=== PATIENT | male | born 1965 | race American Indian/Alaskan Native ===

== ENCOUNTER 2016-06-25 01:17 | Emergency (ER) | payer MEDICAID ==
[2016-06-25 02:26] LABS: Hemoglobin 11.9 gm/dl (11.8-15.2); Mean Corpuscular HGB Conc 32 % (32-34); Mean Corpuscular Volume 71 fl (84-94); Platelet Count 211 K/mm3 (140-440); Red Blood Count 5.21 M/mm3 (3.65-5.03); Red Cell Distribution Width 17.4 % (13.2-15.2); White Blood Count 5.7 K/mm3 (4.5-11.0)
[2016-06-25 02:30] LABS: Urine Drugs of Abuse Note Disclamer
[2016-06-25 02:30] LABS: Mean Corpuscular Hemoglobin 23 pg (28-32)
[2016-06-25 02:39] LABS: Anion Gap 20 mmol/L; Blood Urea Nitrogen 12 mg/dL (9-20); Calcium 8.7 mg/dL (8.4-10.2); Carbon Dioxide 22 mmol/L (22-30); Glucose 168 mg/dL (75-100); Potassium 3.8 mmol/L (3.6-5.0); Sodium 142 mmol/L (137-145)
[2016-06-25 02:41] LABS: Bacteria,Urine 1+ /HPF (Negative); Bilirubin,Urine NEG (Negative); Blood,Urine NEG (Negative); Ketones,Urine NEG (Negative); Leukocyte Esterase,Urine NEG (Negative); Nitrite,Urine NEG (Negative); Protein,Urine <15 mg/dL mg/dL (Negative); Urobilinogen,Urine < 2.0 mg/dL (<2.0); WBC,Urine < 1.0 /HPF (0.0-6.0)
[2016-06-25 03:15] LABS: Basophils % (Manual) 0 % (0.0-1.8); Blastocytes % (Manual) 0 %; Hypochromasia 1+
[2016-06-25 03:16] LABS: Diff Status Complete
[2016-06-25] MEDS ORDERED: ATIVAN IM PRN (03:24)
--- NOTE | 2016-06-25 03:25 | Emergency Department Report ---
ED General Adult HPI - General Chief complaint: Psych Stated complaint: SICK Time Seen by Provider: 06/25/16 03:10 Source: patient Mode of arrival: Ambulatory Limitations: No Limitations - History of Present Illness Initial comments: this is a 51 y/o male he is previously unknown to me he presents to the Er complaining of wanting to end it all and be with his who is The patient indicates that he has consumed alcohol and he has tried to overdose on a legal drugs. He is not hearing voices. There is no trauma. There is no chest pain. There is no shortness of breath. The patient will not answer whether or not he has access to guns or firearms. -: Gradual Consistency: constant Improves with: none Worsens with: none Associated Symptoms: malaise, weakness. denies: chest pain, cough, diaphoresis , fever/chills, headaches, loss of appetite - Related Data Allergies Allergy/AdvReac Type Severity Reaction Status Date / Time haloperidol [From Haldol] Allergy Unknown Verified 06/25/16 01:33 haloperidol lactate Allergy Unknown Verified 06/25/16 01:33 [From Haldol] ED Review of Systems ROS: Stated complaint: SICK Other details as noted in HPI Constitutional: denies: fever Eyes: denies: vision change ENT: denies: epistaxis Respiratory: denies: cough Cardiovascular: denies: chest pain Gastrointestinal: denies: abdominal pain Genitourinary: denies: dysuria Musculoskeletal: denies: back pain Skin: denies: lesions Neurological: weakness Psychiatric: as per HPI, suicidal thoughts ED Past Medical Hx - Past Medical History Hx Hypertension: Yes Hx Diabetes: Yes - Surgical History Past Surgical History?: Yes Additional Surgical History: will not elaborate - Social History Smoking Status: Current Every Day Smoker Substance Use Type: Alcohol, Other ED Physical Exam - General Limitations: No Limitations, Other (patient has alcohol on breath, he is intoxicated) General appearance: alert, in no apparent distress - Head Head exam: Present: atraumatic, normocephalic - Eye Eye exam: Present: normal appearance, EOMI. Absent: nystagmus - ENT ENT exam: Present: normal exam, normal orophraynx, mucous membranes moist, normal external ear exam - Neck Neck exam: Present: normal inspection, full ROM. Absent: tenderness, meningismus - Respiratory Respiratory exam: Present: normal lung sounds bilaterally. Absent: respiratory distress, wheezes, rales, rhonchi, stridor, chest wall tenderness, accessory muscle use, decreased breath sounds, prolonged expiratory - Cardiovascular Cardiovascular Exam: Present: regular rate, normal rhythm, normal heart sounds. Absent: bradycardia, tachycardia, irregular rhythm, systolic murmur, diastolic murmur, rubs, gallop - GI/Abdominal GI/Abdominal exam: Present: soft, normal bowel sounds. Absent: distended, tenderness, guarding, rebound, rigid, pulsatile mass - Rectal Rectal exam: Present: deferred - Extremities Exam Extremities exam: Present: normal inspection, full ROM, normal capillary refill. Absent: pedal edema, joint swelling, calf tenderness - Back Exam Back exam: Present: normal inspection, full ROM. Absent: tenderness, CVA tenderness (R), CVA tenderness (L), muscle spasm, paraspinal tenderness, vertebral tenderness - Neurological Exam Neurological exam: Present: alert, oriented X3, other (Extraocular movements intact. Tongue midline. No facial droop. Facial sensation intact to light touch in the V1, V2, V3 distribution bilaterally. 5 and 5 strength in 4 extremities.. Sensation is intact to light touch in 4 extremities.). Absent: motor sensory deficit - Psychiatric Psychiatric exam: Present: depressed, anxious, suicidal ideation - Skin Skin exam: Present: warm, dry, intact, normal color. Absent: rash ED Course Vital Signs 06/25/16 01:25 Temperature 98.4 F Pulse Rate 94 H Respiratory 18 Rate Blood Pressure 136/84 O2 Sat by Pulse 95 Oximetry - Reevaluation(s) Reevaluation #1: 06/25/16 05:16 differential diagnosis: Polysubstance abuse, mood disorder, alcohol intoxication Assessment and plan: 51-year-old male who is intoxicated, and is endorsing suicidal ideation. No obvious occasional blunt head trauma. Neurologic exam and physical examination unremarkable. Laboratory studies reviewed and are unremarkable. At this point in time, I see no immediate medical contraindication to psychiatric admission/evaluation/consultation. He will be placed on a 1013. The crisis team was informed. ED Medical Decision Making - Lab Data Result diagrams: 06/25/16 02:04 06/25/16 02:04 Vital Signs 06/25/16 01:25 Temperature 98.4 F Pulse Rate 94 H Respiratory 18 Rate Blood Pressure 136/84 O2 Sat by Pulse 95 Oximetry Lab Results 04/12/17 04/12/17 04/12/17 Range/Units 02:04 02:04 02:04 WBC 5.7 (4.5-11.0) K/mm3 RBC 5.21 H (3.65-5.03) M/mm3 Hgb 11.9 (11.8-15.2) gm/dl Hct 37.0 (35.5-45.6) % MCV 71 L (84-94) fl MCH 23 L (28-32) pg MCHC 32 (32-34) % RDW 17.4 H (13.2-15.2) % Plt Count 211 (140-440) K/mm3 Lymph % (Auto) [employer] Add Manual Diff Complete Total Counted 100 Seg Neutrophils % [employer] Seg Neuts % (Manual) 28.0 L (40.0-70.0) % Band Neutrophils % 0 % Lymphocytes % (Manual) 59.0 H (13.4-35.0) % Reactive Lymphs % (Man) 0 % Monocytes % (Manual) 5.0 (0.0-7.3) % Eosinophils % (Manual) 8.0 H (0.0-4.3) % Basophils % (Manual) 0 (0.0-1.8) % Metamyelocytes % 0 % Myelocytes % 0 % Promyelocytes % 0 % Blast Cells % 0 % Nucleated RBC % Not Reportable Seg Neutrophils # Man 1.6 L (1.8-7.7) K/mm3 Band Neutrophils # 0.0 K/mm3 Lymphocytes # (Manual) 3.4 (1.2-5.4) K/mm3 Abs React Lymphs (Man) 0.0 K/mm3 Monocytes # (Manual) 0.3 (0.0-0.8) K/mm3 Eosinophils # (Manual) 0.5 H (0.0-0.4) K/mm3 Basophils # (Manual) 0.0 (0.0-0.1) K/mm3 Metamyelocytes # 0.0 K/mm3 Myelocytes # 0.0 K/mm3 Promyelocytes # 0.0 K/mm3 Blast Cells # 0.0 K/mm3 WBC Morphology Not Reportable Hypersegmented Neuts Not Reportable Hyposegmented Neuts Not Reportable Hypogranular Neuts Not Reportable Smudge Cells Not Reportable Toxic Granulation Not Reportable Toxic Vacuolation Not Reportable Dohle Bodies Not Reportable Pelger-Huet Anomaly Not Reportable Radha Rods Not Reportable Platelet Estimate Appears normal Clumped Platelets Not Reportable Plt Clumps, EDTA Not Reportable Large Platelets Not Reportable Giant Platelets Not Reportable Platelet Satelliting Not Reportable Plt Morphology Comment Not Reportable RBC Morphology Not Reportable Dimorphic RBCs Not Reportable Polychromasia Not Reportable Hypochromasia 1+ Poikilocytosis Not Reportable Anisocytosis Not Reportable Microcytosis Not Reportable Macrocytosis Not Reportable Spherocytes Not Reportable Pappenheimer Bodies Not Reportable Sickle Cells Not Reportable Target Cells Not Reportable Tear Drop Cells Not Reportable Ovalocytes Not Reportable Helmet Cells Not Reportable [place] Bodies Not Reportable [place] Rings Not Reportable [place] Cells Not Reportable Bite Cells Not Reportable Crenated Cell Not Reportable Elliptocytes Not Reportable Acanthocytes (Spur) Not Reportable Rouleaux Not Reportable Hemoglobin C Crystals Not Reportable Schistocytes Not Reportable Malaria parasites Not Reportable Gopi Bodies Not Reportable Hem Pathologist Commnt No Sodium 142 (137-145) mmol/L Potassium 3.8 (3.6-5.0) mmol/L Chloride 104.0 (98-107) mmol/L Carbon Dioxide 22 (22-30) mmol/L Anion Gap 20 mmol/L BUN 12 (9-20) mg/dL Creatinine 0.8 (0.8-1.5) mg/dL Estimated GFR > 60 ml/min BUN/Creatinine Ratio 15.00 % Glucose 168 H (75-100) mg/dL Calcium 8.7 (8.4-10.2) mg/dL Magnesium (1.7-2.3) mg/dL Total Creatine Kinase (55-170) units/L Urine Color (Yellow) Urine Turbidity (Clear) Urine pH (5.0-7.0) Ur Specific [place] (1.003-1.030) Urine Protein (Negative) mg/dL Urine Glucose (UA) (Negative) mg/dL Urine Ketones (Negative) mg/dL Urine Blood (Negative) Urine Nitrite (Negative) Urine Bilirubin (Negative) Urine Urobilinogen (<2.0) mg/dL Ur Leukocyte Esterase (Negative) Urine WBC (Auto) (0.0-6.0) /HPF Urine RBC (Auto) (0.0-6.0) /HPF U Epithel Cells (Auto) (0-13.0) /HPF Urine Bacteria (Auto) (Negative) /HPF Salicylates (2.8-20.0) mg/dL Urine Opiates Screen Urine Methadone Screen Acetaminophen (10.0-30.0) ug/mL Ur Barbiturates Screen Ur Phencyclidine Scrn Ur Amphetamines Screen U Benzodiazepines Scrn Urine Cocaine Screen U Marijuana (THC) Screen Drugs of Abuse Note Plasma/Serum Alcohol 0.23 H (0-0.07) gm% 06/25/16 06/25/16 06/25/16 Range/Units 02:04 02:04 02:04 WBC (4.5-11.0) K/mm3 RBC (3.65-5.03) M/mm3 Hgb (11.8-15.2) gm/dl Hct (35.5-45.6) % MCV (84-94) fl MCH (28-32) pg MCHC (32-34) % RDW (13.2-15.2) % Plt Count (140-440) K/mm3 Lymph % (Auto) Add Manual Diff Total Counted Seg Neutrophils % Seg Neuts % (Manual) (40.0-70.0) % Band Neutrophils % % Lymphocytes % (Manual) (13.4-35.0) % Reactive Lymphs % (Man) % Monocytes % (Manual) (0.0-7.3) % Eosinophils % (Manual) (0.0-4.3) % Basophils % (Manual) (0.0-1.8) % Metamyelocytes % % Myelocytes % % Promyelocytes % % Blast Cells % % Nucleated RBC % Seg Neutrophils # Man (1.8-7.7) K/mm3 Band Neutrophils # K/mm3 Lymphocytes # (Manual) (1.2-5.4) K/mm3 Abs React Lymphs (Man) K/mm3 Monocytes # (Manual) (0.0-0.8) K/mm3 Eosinophils # (Manual) (0.0-0.4) K/mm3 Basophils # (Manual) (0.0-0.1) K/mm3 Metamyelocytes # K/mm3 Myelocytes # K/mm3 Promyelocytes # K/mm3 Blast Cells # K/mm3 WBC Morphology Hypersegmented Neuts Hyposegmented Neuts Hypogranular Neuts Smudge Cells Toxic Granulation Toxic Vacuolation Dohle Bodies Pelger-Huet Anomaly Radha Rods Platelet Estimate Clumped Platelets Plt Clumps, EDTA Large Platelets Giant Platelets Platelet Satelliting Plt Morphology Comment RBC Morphology Dimorphic RBCs Polychromasia Hypochromasia Poikilocytosis Anisocytosis Microcytosis Macrocytosis Spherocytes Pappenheimer Bodies Sickle Cells Target Cells Tear Drop Cells Ovalocytes Helmet Cells [place] Bodies [place] Rings [place] Cells Bite Cells Crenated Cell Elliptocytes Acanthocytes (Spur) Rouleaux Hemoglobin C Crystals Schistocytes Malaria parasites Gopi Bodies Hem Pathologist Commnt Sodium (137-145) mmol/L Potassium (3.6-5.0) mmol/L Chloride (98-107) mmol/L Carbon Dioxide (22-30) mmol/L Anion Gap mmol/L BUN (9-20) mg/dL Creatinine (0.8-1.5) mg/dL Estimated GFR ml/min BUN/Creatinine Ratio % Glucose (75-100) mg/dL Calcium (8.4-10.2) mg/dL Magnesium 2.1 (1.7-2.3) mg/dL Total Creatine Kinase 213 H (55-170) units/L Urine Color (Yellow) Urine Turbidity (Clear) Urine pH (5.0-7.0) Ur Specific [place] (1.003-1.030) Urine Protein (Negative) mg/dL Urine Glucose (UA) (Negative) mg/dL Urine Ketones (Negative) mg/dL Urine Blood (Negative) Urine Nitrite (Negative) Urine Bilirubin (Negative) Urine Urobilinogen (<2.0) mg/dL Ur Leukocyte Esterase (Negative) Urine WBC (Auto) (0.0-6.0) /HPF Urine RBC (Auto) (0.0-6.0) /HPF U Epithel Cells (Auto) (0-13.0) /HPF Urine Bacteria (Auto) (Negative) /HPF Salicylates < 0.3 L (2.8-20.0) mg/dL Urine Opiates Screen Urine Methadone Screen Acetaminophen < 15.0 (10.0-30.0) ug/mL Ur Barbiturates Screen Ur Phencyclidine Scrn Ur Amphetamines Screen U Benzodiazepines Scrn Urine Cocaine Screen U Marijuana (THC) Screen Drugs of Abuse Note Plasma/Serum Alcohol (0-0.07) gm% 06/25/16 06/25/16 Range/Units 02:36 02:50 WBC (4.5-11.0) K/mm3 RBC (3.65-5.03) M/mm3 Hgb (11.8-15.2) gm/dl Hct (35.5-45.6) % MCV (84-94) fl MCH (28-32) pg MCHC (32-34) % RDW (13.2-15.2) % Plt Count (140-440) K/mm3 Lymph % (Auto) Add Manual Diff Total Counted Seg Neutrophils % Seg Neuts % (Manual) (40.0-70.0) % Band Neutrophils % % Lymphocytes % (Manual) (13.4-35.0) % Reactive Lymphs % (Man) % Monocytes % (Manual) (0.0-7.3) % Eosinophils % (Manual) (0.0-4.3) % Basophils % (Manual) (0.0-1.8) % Metamyelocytes % % Myelocytes % % Promyelocytes % % Blast Cells % % Nucleated RBC % Seg Neutrophils # Man (1.8-7.7) K/mm3 Band Neutrophils # K/mm3 Lymphocytes # (Manual) (1.2-5.4) K/mm3 Abs React Lymphs (Man) K/mm3 Monocytes # (Manual) (0.0-0.8) K/mm3 Eosinophils # (Manual) (0.0-0.4) K/mm3 Basophils # (Manual) (0.0-0.1) K/mm3 Metamyelocytes # K/mm3 Myelocytes # K/mm3 Promyelocytes # K/mm3 Blast Cells # K/mm3 WBC Morphology Hypersegmented Neuts Hyposegmented Neuts Hypogranular Neuts Smudge Cells Toxic Granulation Toxic Vacuolation Dohle Bodies Pelger-Huet Anomaly Radha Rods Platelet Estimate Clumped Platelets Plt Clumps, EDTA Large Platelets Giant Platelets Platelet Satelliting Plt Morphology Comment RBC Morphology Dimorphic RBCs Polychromasia Hypochromasia Poikilocytosis Anisocytosis Microcytosis Macrocytosis Spherocytes Pappenheimer Bodies Sickle Cells Target Cells Tear Drop Cells Ovalocytes Helmet Cells [place] Bodies [place] Rings [place] Cells Bite Cells Crenated Cell Elliptocytes Acanthocytes (Spur) Rouleaux Hemoglobin C Crystals Schistocytes Malaria parasites Gopi Bodies Hem Pathologist Commnt Sodium (137-145) mmol/L Potassium (3.6-5.0) mmol/L Chloride (98-107) mmol/L Carbon Dioxide (22-30) mmol/L Anion Gap mmol/L BUN (9-20) mg/dL Creatinine (0.8-1.5) mg/dL Estimated GFR ml/min BUN/Creatinine Ratio % Glucose (75-100) mg/dL Calcium (8.4-10.2) mg/dL Magnesium (1.7-2.3) mg/dL Total Creatine Kinase (55-170) units/L Urine Color Straw (Yellow) Urine Turbidity Clear (Clear) Urine pH 6.0 (5.0-7.0) Ur Specific [place] 1.006 (1.003-1.030) Urine Protein <15 mg/dl (Negative) mg/dL Urine Glucose (UA) Neg (Negative) mg/dL Urine Ketones Neg (Negative) mg/dL Urine Blood Neg (Negative) Urine Nitrite Neg (Negative) Urine Bilirubin Neg (Negative) Urine Urobilinogen < 2.0 (<2.0) mg/dL Ur Leukocyte Esterase Neg (Negative) Urine WBC (Auto) < 1.0 (0.0-6.0) /HPF Urine RBC (Auto) 3.0 (0.0-6.0) /HPF U Epithel Cells (Auto) < 1.0 (0-13.0) /HPF Urine Bacteria (Auto) 1+ (Negative) /HPF Salicylates (2.8-20.0) mg/dL Urine Opiates Screen Presumptive negative Urine Methadone Screen Presumptive negative Acetaminophen (10.0-30.0) ug/mL Ur Barbiturates Screen Presumptive negative Ur Phencyclidine Scrn Presumptive negative Ur Amphetamines Screen Presumptive negative U Benzodiazepines Scrn Presumptive negative Urine Cocaine Screen Presumptive positive U Marijuana (THC) Screen Presumptive negative Drugs of Abuse Note Disclamer Plasma/Serum Alcohol (0-0.07) gm% Critical care attestation.: If time is entered above; I have spent that time in minutes in the direct care of this critically ill patient, excluding procedure time. ED Disposition Clinical Impression: Alcohol intoxication, Mood disorder Disposition: DC/TX PSY HOSP/PSY UNIT Is pt being admited?: No Does the pt Need Aspirin: No Condition: Stable Referrals: PRIMARY CARE, [Primary Care Provider] - 3-5 Days
[2016-06-25 03:45] LABS: Magnesium 2.1 mg/dL (1.7-2.3)
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
[2016-06-25] MEDS: RisperDAL PO SCH (22:40)
--- NOTE | 2016-06-26 10:56 | Progress Note ---
Subjective - Reason for Consult Consult date: 06/26/16 Reason for consult: Psychiatry Follow-up - Chief Complaint Chief complaint: 'I feel fine" Mr. Killian is a 51 year old black male who presented to the ER for help with depression, suicidal ideation, and cocaine/alcohol use. Today patient is calm and cooperative during assessment. He stated that his current living arrangements and the of his 6 months ago triggered the suicidal ideations. He stated that he had used cocaine over 4 days with alcohol consumption. He stated he uses cocaine often to help with his depressed mood occasionally. Per the patient, he has not been compliance with his risperdal. Patient was administered risperdal last night and denied any side effects. He denies SI/HI's, AVH's, being depressed or racing thoughts at this time. Patient did mention that his appetite is "poor." He states that he eat once or maybe twice a day. He denies having issues with a person or persons at his residence, "I just want a better place to live." Mental Status Exam - Vital signs Last Vital Signs Temp 98.7 F 06/25/16 07:26 Pulse 79 06/26/16 06:20 Resp 16 06/26/16 06:21 BP 105/72 06/26/16 06:20 Pulse Ox 97 06/26/16 06:21 - Exam Orientation: time, place, person Affect: flat Mood: congruent with affect Thought content: other (None) Thought Process: Intact Perceptions: none Speech: normal rate and pattern Concentration: other Motor activity: normal Level of consciousness: alert Memory: Intact Sleep Symptoms: None ("I slept 8 hours lasy night") Interaction: cooperative Assessment and Plan Impression: Hx of Bipolar Disorder/Cocaine and Alcohol Abuse. This is 51 year old AA male with severe depressive symptoms in the context of bipolar disorder and substance abuse. Today patient is calm and cooperative during assessment. He stated that his current living arrangements and the of his 6 months ago triggered the suicidal ideations. He denies SI/HI's or AVH's at this time. Positive for cocaine and alcohol serum 0.23. Recommendation/Plan: 1013 with possible transfer to inpatient psychiatric or refer to outpatient services. Continue Risperdal 1mg PO HS for bipolar disorder. Discussed metabolic side effects with patient referencing risperdal. Social Service to help with possible placement to another residence.
[2016-06-26] MEDS: RisperDAL PO SCH (22:59)
--- NOTE | 2016-06-27 13:08 | Progress Note ---
Subjective - Reason for Consult Consult date: 06/27/16 Reason for consult: psychiatric evaluation - Chief Complaint Chief complaint: 'I feel fine" Mr. Killian is a 51 year old black male who presented to the ER for help with depression, suicidal ideation, and cocaine/alcohol use. Today patient is calm and cooperative during assessment. He stated that his current living arrangements and the of his 6 months ago triggered the suicidal ideations. He stated that he had used cocaine over 4 days with alcohol consumption. He stated he uses cocaine often to help with his depressed mood occasionally. Per the patient, he has not been compliance with his risperdal. Patient was administered risperdal last night and denied any side effects. He denies SI/HI's, AVH's, being depressed or racing thoughts at this time. Patient did mention that his appetite is "poor." He states that he eat once or maybe twice a day. He denies having issues with a person or persons at his residence, "I just want a better place to live." Mental Status Exam - Vital signs Last Vital Signs Temp 98.7 F 06/26/16 21:05 Pulse 79 06/26/16 21:05 Resp 18 06/27/16 05:23 BP 113/75 06/26/16 21:05 Pulse Ox 96 06/27/16 05:23 - Exam Orientation: time, place, person Affect: anxious Mood: appropriate Thought content: other (no SI, no HI) Thought Process: Intact Perceptions: none Speech: normal rate and pattern Concentration: focused Motor activity: normal Level of consciousness: alert Memory: Intact Sleep Symptoms: None Interaction: cooperative Assessment and Plan Impression: 51 year old male with severe depressive symptoms in the context of bipolar disorder and also substance abuse Bipolar disorder, current episode depressed cocaine use disorder alcohol use disorder-binging type Has not needed detox medication Responding well to Risperdal Plan: wants PHP without lodging - Patient Problems (1) Bipolar disorder current episode depressed Status: Acute Qualifiers: Current episode severity: C Psychotic features: P (2) Cocaine use Status: Acute (3) Alcohol use disorder Status: Acute
[2016-06-27 16:47] VITALS: BP 116/82
== END 2016-06-27 17:00 ==
LOC: EEVIPCON 01:17 → ED 01:17
DX: F39 Unspecified mood [affective] disorder (principal); F10.129 Alcohol abuse with intoxication, unspecified; I10 Essential (primary) hypertension; E11.9 Type 2 diabetes mellitus without complications; F17.200 Nicotine dependence, unspecified, uncomplicated; Z88.8 Allergy status to other drugs, medicaments and biological substances
CPT/HCPCS: 36415; 80048; 80307; 81001; 82550; 83735; 85007; 85025; 99285; G0480; 80320

== ENCOUNTER 2016-08-19 19:47 | Emergency (ER) | payer MEDICAID ==
[2016-08-19 20:32] VITALS: BP 131/96
[2016-08-19 21:01] LABS: Basophils % (Auto) 0.5 % (0.0-1.8); Eosinophils % (Auto) 2.4 % (0.0-4.3); Hematocrit 41.1 % (35.5-45.6); Mean Corpuscular HGB Conc 32 % (32-34); Mean Corpuscular Volume 74 fl (84-94); Platelet Count 196 K/mm3 (140-440); Red Blood Count 5.57 M/mm3 (3.65-5.03); Red Cell Distribution Width 17.5 % (13.2-15.2)
[2016-08-19 21:05] LABS: Mean Corpuscular Hemoglobin 23 pg (28-32)
[2016-08-19 21:18] LABS: Anion Gap 21 mmol/L; BUN/Creatinine Ratio 8.75; Blood Urea Nitrogen 7 mg/dL (9-20); Calcium 10.1 mg/dL (8.4-10.2); Carbon Dioxide 25 mmol/L (22-30); Chloride 98.1 mmol/L (98-107); Glucose 85 mg/dL (75-100); Potassium 4.7 mmol/L (3.6-5.0); Sodium 139 mmol/L (137-145)
[2016-08-19 21:34] LABS: Urine Drugs of Abuse Note Disclamer
[2016-08-19 21:50] LABS: Bilirubin,Urine NEG (Negative); Blood,Urine NEG (Negative); Ketones,Urine 20 mg/dL (Negative); Leukocyte Esterase,Urine NEG (Negative); Nitrite,Urine NEG (Negative); Protein,Urine <15 mg/dL mg/dL (Negative)
[2016-08-20] MEDS ORDERED: TYLENOL PO ONE (00:21)
== END 2016-08-20 09:15 | disposition left against medical advice (07) ==
LOC: ED 19:47
DX: R44.0 Auditory hallucinations (principal); Z53.21 Procedure and treatment not carried out due to patient leaving prior to being seen by health care provider
CPT/HCPCS: 36415; 80048; 80307; 81001; 85025; G0480; 80320

== ENCOUNTER 2016-09-24 00:38 | Emergency (ER) | payer MEDICAID ==
[2016-09-24 01:31] LABS: Urine Drugs of Abuse Note Disclamer
[2016-09-24 01:49] LABS: Bilirubin,Urine NEG (Negative); Blood,Urine NEG (Negative); Ketones,Urine TR mg/dL (Negative); Leukocyte Esterase,Urine NEG (Negative); Mucus,Urine FEW /HPF; Nitrite,Urine NEG (Negative); Protein,Urine <15 mg/dL mg/dL (Negative)
[2016-09-24 02:12] LABS: Hematocrit 37.8 % (35.5-45.6); Mean Corpuscular HGB Conc 32 % (32-34); Mean Corpuscular Volume 72 fl (84-94); Platelet Count 225 K/mm3 (140-440); Red Blood Count 5.24 M/mm3 (3.65-5.03); Red Cell Distribution Width 16.9 % (13.2-15.2); White Blood Count 5.6 K/mm3 (4.5-11.0)
[2016-09-24 02:13] LABS: Mean Corpuscular Hemoglobin 23 pg (28-32)
[2016-09-24 02:23] LABS: Alanine Aminotransferase 33 units/L (7-56); Albumin 4.1 g/dL (3.9-5); Albumin/Globulin Ratio 1.1 %; Alkaline Phosphatase 83 units/L (35-129); Anion Gap 17 mmol/L; BUN/Creatinine Ratio 18.57; Bilirubin,Total < 0.20 mg/dL (0.1-1.2); Blood Urea Nitrogen 13 mg/dL (9-20); Carbon Dioxide 24 mmol/L (22-30); Chloride 102.5 mmol/L (98-107); Creatine Kinase 318 units/L (55-170); Glucose 121 mg/dL (75-100); Potassium 3.6 mmol/L (3.6-5.0); Sodium 140 mmol/L (137-145); Total Protein 7.7 g/dL (6.3-8.2)
[2016-09-24 03:04] LABS: Blastocytes % (Manual) 0 %
[2016-09-24 03:05] LABS: Diff Status Complete; Hypochromasia 1+; Platelet Estimate Consistent w Auto
[2016-09-24] MEDS ORDERED: MOTRIN PO ONE (03:06)
--- NOTE | 2016-09-24 03:46 | Cat Scan Report ---
FINAL REPORT EXAM: CT HEAD/BRAIN WO CON HISTORY: headache COMPARISON: None available. TECHNIQUE: Axial images obtained skull base through vertex. FINDINGS: No acute intracranial hemorrhage, midline shift or pathologic extra axial fluid collection. Ventricles and cisterns are normal in size and configuration for the patient's age. Devlin-white differentiation preserved. Calvarium grossly intact. Orbits are grossly unremarkable. Mild to moderate mucosal thickening the visualized paranasal sinuses. Mastoid air cells are clear. IMPRESSION: No grossly acute intracranial abnormality.
--- NOTE | 2016-09-24 03:56 | Emergency Department Report ---
ED Psych HPI - General Chief Complaint: Psych Stated Complaint: ETOH Time Seen by Provider: 09/24/16 01:37 Source: patient Mode of arrival: Ambulatory - History of Present Illness Initial Comments: 51-year-old male with a past medical history diabetes, hypertension, paranoid schizophrenia, bipolar disorder, and dissociative identity disorder presents to the hospital complaining of suicidal homicidal ideation. Patient does admit to alcohol intake tonight but denies daily alcohol use, addiction, alcohol withdrawal symptoms. Patient has not taken his psychiatric medications 1 month because he states the people he lives with her taken his medication. It is unclear if he is taking any medications at this time. Patient complains of intermittent frontal right-sided headache since a fall injury 1 month ago. Pain is 8/10 in intensity without aggravating or alleviating factors. No other complaints reported. Patient is hearing voices telling him to kill others. Patient states he will kill himself first before he kills others. His plan to kill himself this to run out into traffic. - Related Data Allergies Allergy/AdvReac Type Severity Reaction Status Date / Time haloperidol [From Haldol] Allergy Unknown Verified 06/25/16 01:33 haloperidol lactate Allergy Unknown Verified 06/25/16 01:33 [From Haldol] ED Review of Systems ROS: Stated complaint: ETOH Other details as noted in HPI Comment: All other systems reviewed and negative Other: Constitutional: No fevers chills Eyes: No eye pain visual changes ENT: No ear pain or throat pain Neck: Denies pain Respiratory: Denies cough wheezing shortness of breath Cardiovascular: Denies chest pain, palpitations, syncope GI: Denies abdominal pain, nausea, vomiting, diarrhea : Denies dysuria Musculoskeletal: Denies back pain Skin: Denies rash, lesions, erythema Neurologic: Denies numbness, weakness Psychiatric: As per HPI ED Past Medical Hx - Past Medical History Previous Medical History?: Yes Hx Hypertension: Yes Hx Diabetes: Yes Hx Psychiatric Treatment: Yes (paranoid schizophrenia, bipolar, dissociative identity disoreder) - Surgical History Past Surgical History?: Yes Additional Surgical History: L. eye surgery - Social History Smoking Status: Current Every Day Smoker Substance Use Type: Alcohol ED Physical Exam - General Limitations: Altered Mental Status - Other Other exam information: General: No limitations, patient is alert in no acute distress Head exam: Atraumatic, normocephalic Eyes exam: Normal appearance, pupils equal reactive to light, extraocular movements intact ENT: Moist mucous membrane, normal oropharynx Neck exam: Normal inspection, full range of motion, no meningismus nontender Respiratory exam: Clear to auscultation bilateral, no wheezes, rales, crackles Cardiovascular: Normal rate and rhythm, normal heart sounds Abdomen: Soft, nondistended, and nontender, with normal bowel sounds, no rebound, or guarding Extremity: Full range of motion normal inspection no deformity Back: Normal Inspection, full range of motion, no tenderness Neurologic: Alert, oriented x3, cranial nerves intact, mild left lower facial droop, equal 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 and foot dorsiflexion, gait steady, sensation intact Psychiatric: normal affect, normal mood Skin: Warm, dry, intact ED Course Vital Signs 09/24/16 09/24/16 09/24/16 01:22 01:34 05:40 Temperature 98.6 F Pulse Rate 98 H Respiratory 20 20 20 Rate Blood Pressure 115/81 [Left] O2 Sat by Pulse 98 98 Oximetry ED Medical Decision Making - Lab Data Result diagrams: 09/24/16 01:46 09/24/16 01:46 Lab Results 09/24/16 09/24/16 09/24/16 Range/Units 01:22 01:22 01:46 WBC 5.6 (4.5-11.0) K/mm3 RBC 5.24 H (3.65-5.03) M/mm3 Hgb 12.0 (11.8-15.2) gm/dl Hct 37.8 (35.5-45.6) % MCV 72 L (84-94) fl MCH 23 L (28-32) pg MCHC 32 (32-34) % RDW 16.9 H (13.2-15.2) % Plt Count 225 (140-440) K/mm3 Lymph % (Auto) Circuit Tester Add Manual Diff Complete Total Counted 100 Seg Neutrophils % Circuit Tester Seg Neuts % (Manual) 18.0 L (40.0-70.0) % Band Neutrophils % 0 % Lymphocytes % (Manual) 72.0 H (13.4-35.0) % Reactive Lymphs % (Man) 0 % Monocytes % (Manual) 4.0 (0.0-7.3) % Eosinophils % (Manual) 5.0 H (0.0-4.3) % Basophils % (Manual) 1.0 (0.0-1.8) % Metamyelocytes % 0 % Myelocytes % 0 % Promyelocytes % 0 % Blast Cells % 0 % Nucleated RBC % Not Reportable Seg Neutrophils # Man 1.0 L (1.8-7.7) K/mm3 Band Neutrophils # 0.0 K/mm3 Lymphocytes # (Manual) 4.0 (1.2-5.4) K/mm3 Abs React Lymphs (Man) 0.0 K/mm3 Monocytes # (Manual) 0.2 (0.0-0.8) K/mm3 Eosinophils # (Manual) 0.3 (0.0-0.4) K/mm3 Basophils # (Manual) 0.1 (0.0-0.1) K/mm3 Metamyelocytes # 0.0 K/mm3 Myelocytes # 0.0 K/mm3 Promyelocytes # 0.0 K/mm3 Blast Cells # 0.0 K/mm3 WBC Morphology Not Reportable Hypersegmented Neuts Not Reportable Hyposegmented Neuts Not Reportable Hypogranular Neuts Not Reportable Smudge Cells Not Reportable Toxic Granulation Not Reportable Toxic Vacuolation Not Reportable Dohle Bodies Not Reportable Pelger-Huet Anomaly Not Reportable Radha Rods Not Reportable Platelet Estimate Consistent w auto Clumped Platelets Not Reportable Plt Clumps, EDTA Not Reportable Large Platelets Not Reportable Giant Platelets Not Reportable Platelet Satelliting Not Reportable Plt Morphology Comment Not Reportable RBC Morphology Not Reportable Dimorphic RBCs Not Reportable Polychromasia Not Reportable Hypochromasia 1+ Poikilocytosis Not Reportable Anisocytosis Not Reportable Microcytosis Not Reportable Macrocytosis Not Reportable Spherocytes Not Reportable Pappenheimer Bodies Not Reportable Sickle Cells Not Reportable Target Cells Not Reportable Tear Drop Cells Not Reportable Ovalocytes Not Reportable Helmet Cells Not Reportable [place] Bodies Not Reportable [place] Rings Not Reportable Lalo Cells Not Reportable Bite Cells Not Reportable Crenated Cell Not Reportable Elliptocytes Not Reportable Acanthocytes (Spur) Not Reportable Rouleaux Not Reportable Hemoglobin C Crystals Not Reportable Schistocytes Not Reportable Malaria parasites Not Reportable Gopi Bodies Not Reportable Hem Pathologist Commnt Sent to pathology Sodium (137-145) mmol/L Potassium (3.6-5.0) mmol/L Chloride (98-107) mmol/L Carbon Dioxide (22-30) mmol/L Anion Gap mmol/L BUN (9-20) mg/dL Creatinine (0.8-1.5) mg/dL Estimated GFR ml/min BUN/Creatinine Ratio % Glucose (75-100) mg/dL Calcium (8.4-10.2) mg/dL Total Bilirubin (0.1-1.2) mg/dL AST (5-40) units/L ALT (7-56) units/L Alkaline Phosphatase (35-129) units/L Total Creatine Kinase (55-170) units/L Total Protein (6.3-8.2) g/dL Albumin (3.9-5) g/dL Albumin/Globulin Ratio % Urine Color Yellow (Yellow) Urine Turbidity Clear (Clear) Urine pH 5.0 (5.0-7.0) Ur Specific [place] 1.018 (1.003-1.030) Urine Protein <15 mg/dl (Negative) mg/dL Urine Glucose (UA) Neg (Negative) mg/dL Urine Ketones Tr (Negative) mg/dL Urine Blood Neg (Negative) Urine Nitrite Neg (Negative) Urine Bilirubin Neg (Negative) Urine Urobilinogen 2.0 (<2.0) mg/dL Ur Leukocyte Esterase Neg (Negative) Urine WBC (Auto) 1.0 (0.0-6.0) /HPF Urine RBC (Auto) 2.0 (0.0-6.0) /HPF U Epithel Cells (Auto) < 1.0 (0-13.0) /HPF Urine Mucus Few /HPF Urine Opiates Screen Presumptive negative Urine Methadone Screen Presumptive negative Ur Barbiturates Screen Presumptive negative Ur Phencyclidine Scrn Presumptive negative Ur Amphetamines Screen Presumptive negative U Benzodiazepines Scrn Presumptive negative Urine Cocaine Screen Presumptive positive U Marijuana (THC) Screen Presumptive negative Drugs of Abuse Note Disclamer Plasma/Serum Alcohol (0-0.07) gm% 09/24/16 09/24/16 Range/Units 01:46 01:46 WBC (4.5-11.0) K/mm3 RBC (3.65-5.03) M/mm3 Hgb (11.8-15.2) gm/dl Hct (35.5-45.6) % MCV (84-94) fl MCH (28-32) pg MCHC (32-34) % RDW (13.2-15.2) % Plt Count (140-440) K/mm3 Lymph % (Auto) Add Manual Diff Total Counted Seg Neutrophils % Seg Neuts % (Manual) (40.0-70.0) % Band Neutrophils % % Lymphocytes % (Manual) (13.4-35.0) % Reactive Lymphs % (Man) % Monocytes % (Manual) (0.0-7.3) % Eosinophils % (Manual) (0.0-4.3) % Basophils % (Manual) (0.0-1.8) % Metamyelocytes % % Myelocytes % % Promyelocytes % % Blast Cells % % Nucleated RBC % Seg Neutrophils # Man (1.8-7.7) K/mm3 Band Neutrophils # K/mm3 Lymphocytes # (Manual) (1.2-5.4) K/mm3 Abs React Lymphs (Man) K/mm3 Monocytes # (Manual) (0.0-0.8) K/mm3 Eosinophils # (Manual) (0.0-0.4) K/mm3 Basophils # (Manual) (0.0-0.1) K/mm3 Metamyelocytes # K/mm3 Myelocytes # K/mm3 Promyelocytes # K/mm3 Blast Cells # K/mm3 WBC Morphology Hypersegmented Neuts Hyposegmented Neuts Hypogranular Neuts Smudge Cells Toxic Granulation Toxic Vacuolation Dohle Bodies Pelger-Huet Anomaly Radha Rods Platelet Estimate Clumped Platelets Plt Clumps, EDTA Large Platelets Giant Platelets Platelet Satelliting Plt Morphology Comment RBC Morphology Dimorphic RBCs Polychromasia Hypochromasia Poikilocytosis Anisocytosis Microcytosis Macrocytosis Spherocytes Pappenheimer Bodies Sickle Cells Target Cells Tear Drop Cells Ovalocytes Helmet Cells Humph[place] Bodies [place] Rings Lalo Cells Bite Cells Crenated Cell Elliptocytes Acanthocytes (Spur) Rouleaux Hemoglobin C Crystals Schistocytes Malaria parasites Gopi Bodies Hem Pathologist Commnt Sodium 140 (137-145) mmol/L Potassium 3.6 (3.6-5.0) mmol/L Chloride 102.5 (98-107) mmol/L Carbon Dioxide 24 (22-30) mmol/L Anion Gap 17 mmol/L BUN 13 (9-20) mg/dL Creatinine 0.7 L (0.8-1.5) mg/dL Estimated GFR > 60 ml/min BUN/Creatinine Ratio 18.57 % Glucose 121 H (75-100) mg/dL Calcium 9.0 (8.4-10.2) mg/dL Total Bilirubin < 0.20 (0.1-1.2) mg/dL AST 27 (5-40) units/L ALT 33 (7-56) units/L Alkaline Phosphatase 83 (35-129) units/L Total Creatine Kinase 318 H (55-170) units/L Total Protein 7.7 (6.3-8.2) g/dL Albumin 4.1 (3.9-5) g/dL Albumin/Globulin Ratio 1.1 % Urine Color (Yellow) Urine Turbidity (Clear) Urine pH (5.0-7.0) Ur Specific [place] (1.003-1.030) Urine Protein (Negative) mg/dL Urine Glucose (UA) (Negative) mg/dL Urine Ketones (Negative) mg/dL Urine Blood (Negative) Urine Nitrite (Negative) Urine Bilirubin (Negative) Urine Urobilinogen (<2.0) mg/dL Ur Leukocyte Esterase (Negative) Urine WBC (Auto) (0.0-6.0) /HPF Urine RBC (Auto) (0.0-6.0) /HPF U Epithel Cells (Auto) (0-13.0) /HPF Urine Mucus /HPF Urine Opiates Screen Urine Methadone Screen Ur Barbiturates Screen Ur Phencyclidine Scrn Ur Amphetamines Screen U Benzodiazepines Scrn Urine Cocaine Screen U Marijuana (THC) Screen Drugs of Abuse Note Plasma/Serum Alcohol 0.17 H (0-0.07) gm% - Radiology Data Radiology results: report reviewed (ct head: naf) - Medical Decision Making 1013 and transfer forms have been signed. awaiting acceptance - Differential Diagnosis suicidal, alcohol intoxication, schizophrenia, medication noncompliance Critical Care Time: No Critical care attestation.: If time is entered above; I have spent that time in minutes in the direct care of this critically ill patient, excluding procedure time. ED Disposition Clinical Impression: Bipolar disorder current episode depressed, Cocaine use, Alcohol use disorder, Suicidal ideation, Psychosis, Noncompliance with medication regimen, Medical clearance for psychiatric admission Disposition: DC/TX-65 PSY HOSP/PSY UNIT Is pt being admited?: No Does the pt Need Aspirin: No Condition: Stable Time of Disposition: 05:44 (awaiting acceptance)
[2016-09-24] MEDS ORDERED: MOTRIN ONE (05:33)
[2016-09-24 10:50] VITALS: BP 112/75
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
[2016-09-24] MEDS ORDERED: RisperDAL PO SCH (22:00)
== END 2016-09-24 21:06 ==
LOC: ED 00:38 → EEVIPCON 00:38 → ED 21:06
DX: F31.9 Bipolar disorder, unspecified (principal); F14.90 Cocaine use, unspecified, uncomplicated; F29 Unspecified psychosis not due to a substance or known physiological condition; I10 Essential (primary) hypertension; E11.9 Type 2 diabetes mellitus without complications; F20.9 Schizophrenia, unspecified; F17.210 Nicotine dependence, cigarettes, uncomplicated; F10.10 Alcohol abuse, uncomplicated; Z91.14 Patient's other noncompliance with medication regimen; Z88.8 Allergy status to other drugs, medicaments and biological substances
CPT/HCPCS: 36415; 70450; 80053; 80307; 81001; 82550; 85007; 85025; 99285; G0480; 80320

== ENCOUNTER 2016-12-31 00:41 | Emergency (ER) | payer MEDICAID | END 2016-12-31 01:35 | disposition left against medical advice (07) | LOC: ED 00:41 | DX: Z53.21 Procedure and treatment not carried out due to patient leaving prior to being seen by health care provider (principal) ==

== ENCOUNTER 2017-01-07 19:49 | Emergency (ER) | payer MEDICAID ==
[2017-01-07 20:51] LABS: Urine Drugs of Abuse Note Disclamer
[2017-01-07 20:56] LABS: Bilirubin,Urine NEG (Negative); Blood,Urine NEG (Negative); Ketones,Urine 20 mg/dL (Negative); Leukocyte Esterase,Urine NEG (Negative); Mucus,Urine FEW /HPF; Nitrite,Urine NEG (Negative); Protein,Urine <15 mg/dL mg/dL (Negative)
[2017-01-07 21:19] LABS: Basophils % (Auto) 0.6 % (0.0-1.8); Eosinophils % (Auto) 2.7 % (0.0-4.3); Hematocrit 41.9 % (35.5-45.6); Hemoglobin 13.3 gm/dl (11.8-15.2); Mean Corpuscular HGB Conc 32 % (32-34); Mean Corpuscular Hemoglobin 23 pg (28-32); Mean Corpuscular Volume 74 fl (84-94); Platelet Count 218 K/mm3 (140-440); White Blood Count 7.6 K/mm3 (4.5-11.0)
[2017-01-07 21:39] LABS: Anion Gap 19 mmol/L; BUN/Creatinine Ratio 16; Blood Urea Nitrogen 13 mg/dL (9-20); Calcium 9.6 mg/dL (8.4-10.2); Carbon Dioxide 28 mmol/L (22-30); Chloride 101.7 mmol/L (98-107); Glucose 96 mg/dL (75-100); Potassium 4.2 mmol/L (3.6-5.0); Sodium 144 mmol/L (137-145)
--- NOTE | 2017-01-07 22:15 | Emergency Department Report ---
ED General Adult HPI - General Chief complaint: Psych Stated complaint: MH/NO PLAN Time Seen by Provider: 01/07/17 21:22 Source: patient Mode of arrival: Ambulatory Limitations: No Limitations - History of Present Illness Initial comments: Patient is a 41-year-old male past medical history of paranoid schizophrenia and bipolar who presents with suicidal ideation. Patient states that he has suicidal thoughts and he's been having suicidal thoughts for the last 3 days. Patient states that he hears voices when no one surround and his plan was to go on traffic or get his hands on a weapon. Patient denies being in any pain. He states that he hasn't had any of his medications for at least a week and he denies any drug use today but states that he uses marijuana and drinks alcohol sometimes. Patient is not employed. - Related Data Allergies Allergy/AdvReac Type Severity Reaction Status Date / Time haloperidol [From Haldol] Allergy Unknown Verified 01/07/17 20:31 haloperidol lactate Allergy Unknown Verified 06/25/16 01:33 [From Haldol] ED Review of Systems ROS: Stated complaint: MH/NO PLAN Other details as noted in HPI Constitutional: denies: chills, fever Eyes: denies: eye pain, eye discharge, vision change ENT: denies: ear pain, throat pain Respiratory: denies: cough, shortness of breath, wheezing Cardiovascular: denies: chest pain, palpitations Endocrine: no symptoms reported Gastrointestinal: denies: abdominal pain, nausea, diarrhea Genitourinary: denies: urgency, dysuria Musculoskeletal: denies: back pain, joint swelling, arthralgia Skin: denies: rash, lesions Neurological: denies: headache, weakness, paresthesias Psychiatric: depression, auditory hallucinations, homicidal thoughts, suicidal thoughts. denies: anxiety Hematological/Lymphatic: denies: easy bleeding, easy bruising ED Past Medical Hx - Past Medical History Previous Medical History?: Yes Hx Hypertension: Yes Hx Diabetes: Yes Hx Psychiatric Treatment: Yes (paranoid schizophrenia, bipolar, dissociative identity disoreder) - Surgical History Past Surgical History?: Yes Additional Surgical History: L. eye surgery - Social History Smoking Status: Current Every Day Smoker Substance Use Type: Alcohol, Marijuana ED Physical Exam - General Limitations: No Limitations General appearance: alert, in no apparent distress - Head Head exam: Present: atraumatic, normocephalic - Eye Eye exam: Present: normal appearance - ENT ENT exam: Present: mucous membranes moist - Neck Neck exam: Present: normal inspection - Respiratory Respiratory exam: Present: normal lung sounds bilaterally. Absent: respiratory distress - Cardiovascular Cardiovascular Exam: Present: regular rate, normal rhythm. Absent: systolic murmur, diastolic murmur, rubs, gallop - GI/Abdominal GI/Abdominal exam: Present: soft, normal bowel sounds - Rectal Rectal exam: Present: deferred - Extremities Exam Extremities exam: Present: normal inspection - Back Exam Back exam: Present: normal inspection - Neurological Exam Neurological exam: Present: alert - Psychiatric Psychiatric exam: Present: depressed, suicidal ideation - Skin Skin exam: Present: warm, dry, intact, normal color. Absent: rash ED Course Vital Signs 01/07/17 20:31 Temperature 98.8 F Pulse Rate 75 Respiratory 16 Rate Blood Pressure 141/78 O2 Sat by Pulse 97 Oximetry ED Medical Decision Making - Lab Data Result diagrams: 01/07/17 21:03 01/07/17 21:03 Lab Results 01/07/17 01/07/17 01/07/17 Range/Units 20:41 20:41 21:03 WBC (4.5-11.0) K/mm3 RBC (3.65-5.03) M/mm3 Hgb (11.8-15.2) gm/dl Hct (35.5-45.6) % MCV (84-94) fl MCH (28-32) pg MCHC (32-34) % RDW (13.2-15.2) % Plt Count (140-440) K/mm3 Lymph % (Auto) (13.4-35.0) % Gove % (Auto) (0.0-7.3) % Eos % (Auto) (0.0-4.3) % Baso % (Auto) (0.0-1.8) % Lymph # (1.2-5.4) K/mm3 [place]ove # (0.0-0.8) K/mm3 Eos # (0.0-0.4) K/mm3 Baso # (0.0-0.1) K/mm3 Seg Neutrophils % (40.0-70.0) % Seg Neutrophils # (1.8-7.7) K/mm3 Potassium 4.2 (3.6-5.0) mmol/L Chloride 101.7 (98-107) mmol/L Carbon Dioxide 28 (22-30) mmol/L Anion Gap 19 mmol/L BUN 13 (9-20) mg/dL Creatinine 0.8 (0.8-1.5) mg/dL Estimated GFR > 60 ml/min BUN/Creatinine Ratio 16 % Glucose 96 (75-100) mg/dL Calcium 9.6 (8.4-10.2) mg/dL Urine Color Yellow (Yellow) Urine Turbidity Clear (Clear) Urine pH 5.0 (5.0-7.0) Ur Specific [place] 1.024 (1.003-1.030) Urine Protein <15 mg/dl (Negative) mg/dL Urine Glucose (UA) Neg (Negative) mg/dL Urine Ketones 20 (Negative) mg/dL Urine Blood Neg (Negative) Urine Nitrite Neg (Negative) Urine Bilirubin Neg (Negative) Urine Urobilinogen 4.0 (<2.0) mg/dL Ur Leukocyte Esterase Neg (Negative) Urine WBC (Auto) 2.0 (0.0-6.0) /HPF Urine RBC (Auto) 1.0 (0.0-6.0) /HPF U Epithel Cells (Auto) 1.0 (0-13.0) /HPF Urine Mucus Few /HPF Urine Opiates Screen Presumptive negative Urine Methadone Screen Presumptive negative Ur Barbiturates Screen Presumptive negative Ur Phencyclidine Scrn Presumptive negative Ur Amphetamines Screen Presumptive negative U Benzodiazepines Scrn Presumptive negative Urine Cocaine Screen Presumptive positive U Marijuana (THC) Screen Presumptive positive Drugs of Abuse Note Disclamer Plasma/Serum Alcohol (0-0.07) gm% 01/07/17 01/07/17 Range/Units 21:03 21:03 WBC 7.6 (4.5-11.0) K/mm3 RBC 5.70 H (3.65-5.03) M/mm3 Hgb 13.3 (11.8-15.2) gm/dl Hct 41.9 (35.5-45.6) % MCV 74 L (84-94) fl MCH 23 L (28-32) pg MCHC 32 (32-34) % RDW 17.0 H (13.2-15.2) % Plt Count 218 (140-440) K/mm3 Lymph % (Auto) 32.0 (13.4-35.0) % [place]ove % (Auto) 6.3 (0.0-7.3) % Eos % (Auto) 2.7 (0.0-4.3) % Baso % (Auto) 0.6 (0.0-1.8) % Lymph # 2.4 (1.2-5.4) K/mm3 [place]ove # 0.5 (0.0-0.8) K/mm3 Eos # 0.2 (0.0-0.4) K/mm3 Baso # 0.0 (0.0-0.1) K/mm3 Seg Neutrophils % 58.4 (40.0-70.0) % Seg Neutrophils # 4.4 (1.8-7.7) K/mm3 Potassium (3.6-5.0) mmol/L Chloride (98-107) mmol/L Carbon Dioxide (22-30) mmol/L Anion Gap mmol/L BUN (9-20) mg/dL Creatinine (0.8-1.5) mg/dL Estimated GFR ml/min BUN/Creatinine Ratio % Glucose (75-100) mg/dL Calcium (8.4-10.2) mg/dL Urine Color (Yellow) Urine Turbidity (Clear) Urine pH (5.0-7.0) Ur Specific [place] (1.003-1.030) Urine Protein (Negative) mg/dL Urine Glucose (UA) (Negative) mg/dL Urine Ketones (Negative) mg/dL Urine Blood (Negative) Urine Nitrite (Negative) Urine Bilirubin (Negative) Urine Urobilinogen (<2.0) mg/dL Ur Leukocyte Esterase (Negative) Urine WBC (Auto) (0.0-6.0) /HPF Urine RBC (Auto) (0.0-6.0) /HPF U Epithel Cells (Auto) (0-13.0) /HPF Urine Mucus /HPF Urine Opiates Screen Urine Methadone Screen Ur Barbiturates Screen Ur Phencyclidine Scrn Ur Amphetamines Screen U Benzodiazepines Scrn Urine Cocaine Screen U Marijuana (THC) Screen Drugs of Abuse Note Plasma/Serum Alcohol < 0.01 (0-0.07) gm% - Medical Decision Making Chief medical diagnosis: 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 Discussed plan with mental health worker and agree with plan. Critical care attestation.: If time is entered above; I have spent that time in minutes in the direct care of this critically ill patient, excluding procedure time. ED Disposition Clinical Impression: Psychotic episode, Suicidal ideation, Cocaine abuse, Tetrahydrocannabinol (THC ) use disorder, mild, abuse Psychosis Qualifiers: Psychosis type: other Qualified Code(s): F28 - Other psychotic disorder not due to a substance or known physiological condition Disposition: DC/TX-65 PSY HOSP/PSY UNIT Is pt being admited?: No Does the pt Need Aspirin: No Condition: Stable
[2017-01-08 11:59] VITALS: BP 110/80
--- NOTE | 2017-01-08 12:48 | Consultation ---
History of Present Illness - Reason for Consult Consult date: 01/08/17 Reason for consult: Mental Health Evaluation Requesting physician: CHENTE CACERES - Chief Complaint Chief complaint: "Why me" - History of Present Psychiatric Illness Patient is a 41-year-old AA male past history of Schizoaffective DO presenting with SI's. Today patient is calm and cooperative during the assessment. He stated that he hear voices telling him to "." He stated that the voices has gotten "worse" over the past week, because he have not slept for days. He stated that he hate where he reside, so he been using recreational drugs ( marijuana/cocaine) to cope. He denies being hopeless and helpless, but admit to being sad over his life and his current living arrangement. He stated that the voices is something that he have dealt with for a "a long time." He stated being noncompliant with his medication (Seroquel). He stated when he take Seroquel and stay off "drugs" he feel better. He admit to wanting to commit suicide with a plan to overdose. He stated previous suicide attempts in the past. He denies HI's and VH's. He denies a poor appetite. He denies excessive alcohol consumption. Medications and Allergies Allergies Allergy/AdvReac Type Severity Reaction Status Date / Time haloperidol [From Haldol] Allergy Unknown Verified 01/07/17 20:31 haloperidol lactate Allergy Unknown Verified 06/25/16 01:33 [From Haldol] Home Medications Medication Instructions Recorded Confirmed Last Taken Type No Known Home Medications [No 01/08/17 01/08/17 Unknown History Reported Home Medications] Past psychiatric history - Past Medical History Past Medical History: diabetes, hypertension Past Surgical History: No surgical history - past Psychiatric treatment and history Psych: Bipolar, Schizophrenia psychiatric treatment history: Multiple inpatient psy settings. Denies a fam psy hx. - Social History Social history: other (Reside at a [facility]) Mental Status Exam - Vital signs Last Vital Signs Temp 98.7 F 01/08/17 10:30 Pulse 73 01/08/17 10:30 Resp 18 01/08/17 11:54 BP 110/80 01/08/17 10:30 Pulse Ox 98 01/08/17 11:54 - Exam Narrative exam: MSE: Appearance: calm, cooperative Behavior: regular eye contact Speech: regular rate and tone Mood: "sad" Affect: congruent to mood Thought Process: circumstantial Thought Content: denies SI and VH's Motor Activity: ambulatory Cognition: A/O x3 Insight: variable Judgment: variable Results Result Diagrams: 01/07/17 21:03 01/07/17 21:03 Abnormal lab results 01/07/17 Range/Units 21:03 RBC 5.70 H (3.65-5.03) M/mm3 MCV 74 L (84-94) fl MCH 23 L (28-32) pg RDW 17.0 H (13.2-15.2) % All other labs normal. Assessment and Plan Assessment and plan: Impression: Historical Dx: Schizoaffective DO. Unspecified Mood DO with Psy features. Substance Use DO (marijuana/cocaine). Today patient is calm and cooperative during the assessment. SI with a plan to overdose. Patient experiencing AH's. DDx: R/O MDD, R/O Bipolar, R/O Schizophrenia, Substance Induced Mood DO Recommendation/Plan: Continue 1013 with placement to [facility].
== END 2017-01-08 13:14 ==
LOC: ED 19:49 → EEVIPCON 19:49 → ED 01-08 13:14
DX: R45.851 Suicidal ideations (principal); F28 Other psychotic disorder not due to a substance or known physiological condition; F14.10 Cocaine abuse, uncomplicated; F15.90 Other stimulant use, unspecified, uncomplicated; I10 Essential (primary) hypertension; E11.9 Type 2 diabetes mellitus without complications; F17.200 Nicotine dependence, unspecified, uncomplicated; F12.10 Cannabis abuse, uncomplicated
CPT/HCPCS: 36415; 80048; 80307; 81001; 85025; 99285; G0480; 80320

== ENCOUNTER 2018-05-04 23:22 | Emergency (ER) | payer MEDICAID ==
[2018-05-05 00:36] LABS: Hemoglobin 13.3 gm/dl (11.8-15.2); Mean Corpuscular HGB Conc 32 % (32-34); Mean Corpuscular Volume 74 fl (84-94); Red Blood Count 5.54 M/mm3 (3.65-5.03); Red Cell Distribution Width 18.3 % (13.2-15.2)
[2018-05-05 00:41] LABS: Platelet Count 206 K/mm3 (140-440)
[2018-05-05 00:56] LABS: BUN/Creatinine Ratio 12; Blood Urea Nitrogen 7 mg/dL (9-20); Calcium 9.6 mg/dL (8.4-10.2); Hemolysis Index 6
[2018-05-05 02:33] LABS: Band Neutrophils # (Manual) 0.1 K/mm3; Basophils % (Manual) 0 % (0.0-1.8); Eosinophils % (Manual) 0 % (0.0-4.3); Total Cells Counted 100
[2018-05-05 02:34] LABS: Anisocytosis 1+; Hypochromasia 2+; Large Platelets Few; Ovalocytes 1+; Stomatocytes Few; Target Cells 1+; Tear Drop Cells Rare
--- NOTE | 2018-05-05 07:18 | Emergency Department Report ---
ED General Adult HPI - General Chief complaint: Psych Stated complaint: SUICIDAL THOUGHTS Time Seen by Provider: 05/05/18 07:16 Source: patient Mode of arrival: Ambulatory Limitations: No Limitations - History of Present Illness Initial comments: Patient presents to emergency Department chief complaint of auditory hallucinations. Patient states that he takes a shot once a month for his hallucinations. Patient states still voices are telling him to harm himself. Patient denies any homicidal ideation. -: Gradual Severity scale (0 -10): 0 Consistency: constant Improves with: none Worsens with: none Associated Symptoms: denies other symptoms Treatments Prior to Arrival: none - Related Data Home Medications Medication Instructions Recorded Confirmed Last Taken No Known Home Medications [No 01/08/17 01/08/17 Unknown Reported Home Medications] Allergies Allergy/AdvReac Type Severity Reaction Status Date / Time haloperidol [From Haldol] Allergy Unknown Verified 01/07/17 20:31 haloperidol lactate Allergy Unknown Verified 06/25/16 01:33 [From Haldol] ED Review of Systems ROS: Stated complaint: SUICIDAL THOUGHTS Other details as noted in HPI Comment: All other systems reviewed and negative Constitutional: denies: chills, fever Eyes: denies: eye pain, eye discharge, vision change ENT: denies: ear pain, throat pain Respiratory: denies: cough, shortness of breath, wheezing Cardiovascular: denies: chest pain, palpitations Endocrine: no symptoms reported Gastrointestinal: denies: abdominal pain, nausea, diarrhea Genitourinary: denies: urgency, dysuria Musculoskeletal: denies: back pain, joint swelling, arthralgia Skin: denies: rash, lesions Neurological: denies: headache, weakness, paresthesias Psychiatric: auditory hallucinations. denies: anxiety, depression Hematological/Lymphatic: denies: easy bleeding, easy bruising ED Past Medical Hx - Past Medical History Hx Hypertension: Yes Hx Diabetes: Yes Hx Psychiatric Treatment: Yes (paranoid schizophrenia, bipolar, dissociative identity disoreder) - Surgical History Additional Surgical History: L. eye surgery - Social History Smoking Status: Current Every Day Smoker Substance Use Type: Alcohol, Cocaine, Marijuana - Medications Home Medications: Home Medications Medication Instructions Recorded Confirmed Last Taken Type No Known Home Medications [No 01/08/17 01/08/17 Unknown History Reported Home Medications] ED Physical Exam - General Limitations: No Limitations General appearance: alert, in no apparent distress - Head Head exam: Present: atraumatic, normocephalic - Eye Eye exam: Present: normal appearance, PERRL, EOMI - ENT ENT exam: Present: mucous membranes moist - Neck Neck exam: Present: normal inspection - Respiratory Respiratory exam: Present: normal lung sounds bilaterally. Absent: respiratory distress, wheezes, rales - Cardiovascular Cardiovascular Exam: Present: regular rate, normal rhythm. Absent: systolic murmur, diastolic murmur, rubs, gallop - GI/Abdominal GI/Abdominal exam: Present: soft, normal bowel sounds. Absent: distended, tenderness - Rectal Rectal exam: Present: deferred - Extremities Exam Extremities exam: Present: normal inspection - Back Exam Back exam: Present: normal inspection - Neurological Exam Neurological exam: Present: alert, oriented X3, CN II-XII intact. Absent: motor sensory deficit - Psychiatric Psychiatric exam: Present: suicidal ideation - Skin Skin exam: Present: warm, dry, intact, normal color. Absent: rash ED Course Vital Signs 05/04/18 23:27 Temperature 97.6 F Pulse Rate 98 H Respiratory 18 Rate Blood Pressure 139/87 O2 Sat by Pulse 100 Oximetry ED Medical Decision Making - Lab Data Result diagrams: 05/05/18 00:02 05/05/18 00:02 Lab Results 05/05/18 05/05/18 05/05/18 Range/Units 00:02 00:02 00:02 WBC (4.5-11.0) K/mm3 RBC (3.65-5.03) M/mm3 Hgb (11.8-15.2) gm/dl Hct (35.5-45.6) % MCV (84-94) fl MCH (28-32) pg MCHC (32-34) % RDW (13.2-15.2) % Plt Count (140-440) K/mm3 Add Manual Diff Total Counted Seg Neuts % (Manual) (40.0-70.0) % Band Neutrophils % % Lymphocytes % (Manual) (13.4-35.0) % Reactive Lymphs % (Man) % Monocytes % (Manual) (0.0-7.3) % Eosinophils % (Manual) (0.0-4.3) % Basophils % (Manual) (0.0-1.8) % Metamyelocytes % % Myelocytes % % Promyelocytes % % Blast Cells % % Nucleated RBC % Seg Neutrophils # Man (1.8-7.7) K/mm3 Band Neutrophils # K/mm3 Lymphocytes # (Manual) (1.2-5.4) K/mm3 Abs React Lymphs (Man) K/mm3 Monocytes # (Manual) (0.0-0.8) K/mm3 Eosinophils # (Manual) (0.0-0.4) K/mm3 Basophils # (Manual) (0.0-0.1) K/mm3 Metamyelocytes # K/mm3 Myelocytes # K/mm3 Promyelocytes # K/mm3 Blast Cells # K/mm3 WBC Morphology Hypersegmented Neuts Hyposegmented Neuts Hypogranular Neuts Smudge Cells Toxic Granulation Toxic Vacuolation Dohle Bodies Pelger-Huet Anomaly Radha Rods Platelet Estimate Clumped Platelets Plt Clumps, EDTA Large Platelets Giant Platelets Platelet Satelliting Plt Morphology Comment RBC Morphology Dimorphic RBCs Polychromasia Hypochromasia Poikilocytosis Anisocytosis Microcytosis Macrocytosis Spherocytes Pappenheimer Bodies Sickle Cells Target Cells Tear Drop Cells Ovalocytes Stomatocytes Helmet Cells [place] Bodies [place] Rings Lalo Cells Bite Cells Crenated Cell Elliptocytes Acanthocytes (Spur) Rouleaux Hemoglobin C Crystals Schistocytes Malaria parasites Gopi Bodies Hem Pathologist Commnt Sodium 140 (137-145) mmol/L Potassium 4.6 (3.6-5.0) mmol/L Chloride 99.9 (98-107) mmol/L Carbon Dioxide 23 (22-30) mmol/L Anion Gap 22 mmol/L BUN 7 L (9-20) mg/dL Creatinine 0.6 L (0.8-1.5) mg/dL Estimated GFR > 60 ml/min BUN/Creatinine Ratio 12 % Glucose 110 H (75-100) mg/dL Calcium 9.6 (8.4-10.2) mg/dL Urine Color (Yellow) Urine Turbidity (Clear) Urine pH (5.0-7.0) Ur Specific Tucker (1.003-1.030) Urine Protein (Negative) mg/dL Urine Glucose (UA) (Negative) mg/dL Urine Ketones (Negative) mg/dL Urine Blood (Negative) Urine Nitrite (Negative) Urine Bilirubin (Negative) Urine Urobilinogen (<2.0) mg/dL Ur Leukocyte Esterase (Negative) Urine WBC (Auto) (0.0-6.0) /HPF Urine RBC (Auto) (0.0-6.0) /HPF U Epithel Cells (Auto) (0-13.0) /HPF Urine Bacteria (Auto) (Negative) /HPF Urine Mucus /HPF Salicylates < 0.3 L (2.8-20.0) mg/dL Urine Opiates Screen Urine Methadone Screen Acetaminophen < 5.0 L (10.0-30.0) ug/mL Ur Barbiturates Screen Ur Phencyclidine Scrn Ur Amphetamines Screen U Benzodiazepines Scrn Urine Cocaine Screen U Marijuana (THC) Screen Drugs of Abuse Note Plasma/Serum Alcohol (0-0.07) % 05/05/18 05/05/18 05/05/18 Range/Units 00:02 00:02 Unknown WBC 5.8 (4.5-11.0) K/mm3 RBC 5.54 H (3.65-5.03) M/mm3 Hgb 13.3 (11.8-15.2) gm/dl Hct 41.0 (35.5-45.6) % MCV 74 L (84-94) fl MCH 24 L (28-32) pg MCHC 32 (32-34) % RDW 18.3 H (13.2-15.2) % Plt Count 206 (140-440) K/mm3 Add Manual Diff Complete Total Counted 100 Seg Neuts % (Manual) 56.0 (40.0-70.0) % Band Neutrophils % 2.0 % Lymphocytes % (Manual) 34.0 (13.4-35.0) % Reactive Lymphs % (Man) 0 % Monocytes % (Manual) 8.0 H (0.0-7.3) % Eosinophils % (Manual) 0 (0.0-4.3) % Basophils % (Manual) 0 (0.0-1.8) % Metamyelocytes % 0 % Myelocytes % 0 % Promyelocytes % 0 % Blast Cells % 0 % Nucleated RBC % Not Reportable Seg Neutrophils # Man 3.2 (1.8-7.7) K/mm3 Band Neutrophils # 0.1 K/mm3 Lymphocytes # (Manual) 2.0 (1.2-5.4) K/mm3 Abs React Lymphs (Man) 0.0 K/mm3 Monocytes # (Manual) 0.5 (0.0-0.8) K/mm3 Eosinophils # (Manual) 0.0 (0.0-0.4) K/mm3 Basophils # (Manual) 0.0 (0.0-0.1) K/mm3 Metamyelocytes # 0.0 K/mm3 Myelocytes # 0.0 K/mm3 Promyelocytes # 0.0 K/mm3 Blast Cells # 0.0 K/mm3 WBC Morphology Not Reportable Hypersegmented Neuts Not Reportable Hyposegmented Neuts Not Reportable Hypogranular Neuts Not Reportable Smudge Cells Not Reportable Toxic Granulation Not Reportable Toxic Vacuolation Not Reportable Dohle Bodies Not Reportable Pelger-Huet Anomaly Not Reportable Radha Rods Not Reportable Platelet Estimate Appears normal Clumped Platelets Not Reportable Plt Clumps, EDTA Not Reportable Large Platelets Few Giant Platelets Not Reportable Platelet Satelliting Not Reportable Plt Morphology Comment Not Reportable RBC Morphology Not Reportable Dimorphic RBCs Not Reportable Polychromasia Few Hypochromasia 2+ Poikilocytosis Not Reportable Anisocytosis 1+ Microcytosis 1+ Macrocytosis Not Reportable Spherocytes Not Reportable Pappenheimer Bodies Not Reportable Sickle Cells Not Reportable Target Cells 1+ Tear Drop Cells Rare Ovalocytes 1+ Stomatocytes Few Helmet Cells Not Reportable [place] Bodies Not Reportable [place] Rings Not Reportable Lalo Cells Not Reportable Bite Cells Not Reportable Crenated Cell Not Reportable Elliptocytes Rare Acanthocytes (Spur) Not Reportable Rouleaux Not Reportable Hemoglobin C Crystals Not Reportable Schistocytes Not Reportable Malaria parasites Not Reportable Gopi Bodies Not Reportable Hem Pathologist Commnt No Sodium (137-145) mmol/L Potassium (3.6-5.0) mmol/L Chloride (98-107) mmol/L Carbon Dioxide (22-30) mmol/L Anion Gap mmol/L BUN (9-20) mg/dL Creatinine (0.8-1.5) mg/dL Estimated GFR ml/min BUN/Creatinine Ratio % Glucose (75-100) mg/dL Calcium (8.4-10.2) mg/dL Urine Color Yellow (Yellow) Urine Turbidity Clear (Clear) Urine pH 5.0 (5.0-7.0) Ur Specific Tucker 1.025 (1.003-1.030) Urine Protein <15 mg/dl (Negative) mg/dL Urine Glucose (UA) Neg (Negative) mg/dL Urine Ketones Tr (Negative) mg/dL Urine Blood Neg (Negative) Urine Nitrite Neg (Negative) Urine Bilirubin Neg (Negative) Urine Urobilinogen 2.0 (<2.0) mg/dL Ur Leukocyte Esterase Mod (Negative) Urine WBC (Auto) 29.0 H (0.0-6.0) /HPF Urine RBC (Auto) 3.0 (0.0-6.0) /HPF U Epithel Cells (Auto) 1.0 (0-13.0) /HPF Urine Bacteria (Auto) 1+ (Negative) /HPF Urine Mucus Few /HPF Salicylates (2.8-20.0) mg/dL Urine Opiates Screen Urine Methadone Screen Acetaminophen (10.0-30.0) ug/mL Ur Barbiturates Screen Ur Phencyclidine Scrn Ur Amphetamines Screen U Benzodiazepines Scrn Urine Cocaine Screen U Marijuana (THC) Screen Drugs of Abuse Note Plasma/Serum Alcohol 0.17 H (0-0.07) % 05/05/18 Range/Units Unknown WBC (4.5-11.0) K/mm3 RBC (3.65-5.03) M/mm3 Hgb (11.8-15.2) gm/dl Hct (35.5-45.6) % MCV (84-94) fl MCH (28-32) pg MCHC (32-34) % RDW (13.2-15.2) % Plt Count (140-440) K/mm3 Add Manual Diff Total Counted Seg Neuts % (Manual) (40.0-70.0) % Band Neutrophils % % Lymphocytes % (Manual) (13.4-35.0) % Reactive Lymphs % (Man) % Monocytes % (Manual) (0.0-7.3) % Eosinophils % (Manual) (0.0-4.3) % Basophils % (Manual) (0.0-1.8) % Metamyelocytes % % Myelocytes % % Promyelocytes % % Blast Cells % % Nucleated RBC % Seg Neutrophils # Man (1.8-7.7) K/mm3 Band Neutrophils # K/mm3 Lymphocytes # (Manual) (1.2-5.4) K/mm3 Abs React Lymphs (Man) K/mm3 Monocytes # (Manual) (0.0-0.8) K/mm3 Eosinophils # (Manual) (0.0-0.4) K/mm3 Basophils # (Manual) (0.0-0.1) K/mm3 Metamyelocytes # K/mm3 Myelocytes # K/mm3 Promyelocytes # K/mm3 Blast Cells # K/mm3 WBC Morphology Hypersegmented Neuts Hyposegmented Neuts Hypogranular Neuts Smudge Cells Toxic Granulation Toxic Vacuolation Dohle Bodies Pelger-Huet Anomaly Radha Rods Platelet Estimate Clumped Platelets Plt Clumps, EDTA Large Platelets Giant Platelets Platelet Satelliting Plt Morphology Comment RBC Morphology Dimorphic RBCs Polychromasia Hypochromasia Poikilocytosis Anisocytosis Microcytosis Macrocytosis Spherocytes Pappenheimer Bodies Sickle Cells Target Cells Tear Drop Cells Ovalocytes Stomatocytes Helmet Cells [place] Bodies [place] Rings Lalo Cells Bite Cells Crenated Cell Elliptocytes Acanthocytes (Spur) Rouleaux Hemoglobin C Crystals Schistocytes Malaria parasites Gopi Bodies Hem Pathologist Commnt Sodium (137-145) mmol/L Potassium (3.6-5.0) mmol/L Chloride (98-107) mmol/L Carbon Dioxide (22-30) mmol/L Anion Gap mmol/L BUN (9-20) mg/dL Creatinine (0.8-1.5) mg/dL Estimated GFR ml/min BUN/Creatinine Ratio % Glucose (75-100) mg/dL Calcium (8.4-10.2) mg/dL Urine Color (Yellow) Urine Turbidity (Clear) Urine pH (5.0-7.0) Ur Specific Tucker (1.003-1.030) Urine Protein (Negative) mg/dL Urine Glucose (UA) (Negative) mg/dL Urine Ketones (Negative) mg/dL Urine Blood (Negative) Urine Nitrite (Negative) Urine Bilirubin (Negative) Urine Urobilinogen (<2.0) mg/dL Ur Leukocyte Esterase (Negative) Urine WBC (Auto) (0.0-6.0) /HPF Urine RBC (Auto) (0.0-6.0) /HPF U Epithel Cells (Auto) (0-13.0) /HPF Urine Bacteria (Auto) (Negative) /HPF Urine Mucus /HPF Salicylates (2.8-20.0) mg/dL Urine Opiates Screen Presumptive negative Urine Methadone Screen Presumptive negative Acetaminophen (10.0-30.0) ug/mL Ur Barbiturates Screen Presumptive negative Ur Phencyclidine Scrn Presumptive negative Ur Amphetamines Screen Presumptive negative U Benzodiazepines Scrn Presumptive negative Urine Cocaine Screen Presumptive positive U Marijuana (THC) Screen Presumptive negative Drugs of Abuse Note Disclamer Plasma/Serum Alcohol (0-0.07) % - Medical Decision Making Patient has been accepted to [place] Critical care attestation.: If time is entered above; I have spent that time in minutes in the direct care of this critically ill patient, excluding procedure time. ED Disposition Clinical Impression: Suicidal ideation Disposition: [id number]/TX-65 PSY HOSP/PSY UNIT Is pt being admited?: No Does the pt Need Aspirin: No Condition: Stable Referrals: BLU CHANDLER [Primary Care Provider] - 3-5 Days Time of Disposition: 15:02
[2018-05-05 08:11] LABS: Bacteria,Urine 1+ /HPF (Negative); Bilirubin,Urine NEG (Negative); Blood,Urine NEG (Negative); Color,Urine Yellow (Yellow); Mucus,Urine FEW /HPF; Protein,Urine <15 mg/dL mg/dL (Negative)
[2018-05-05 08:17] LABS: Amphetamine Screen,Urine PRESUMPTIVE NEGATIVE; Benzodiazepines Screen,Urine PRESUMPTIVE NEGATIVE; Cannabinoid Screen,Urine PRESUMPTIVE NEGATIVE; Methadone Screen,Urine PRESUMPTIVE NEGATIVE; Opiate Screen,Urine PRESUMPTIVE NEGATIVE
[2018-05-05 08:35] LABS: Cocaine Screen,Urine PRESUMPTIVE POSITIVE
[2018-05-05 15:04] VITALS: BP 104/65
== END 2018-05-05 18:35 ==
LOC: ED 23:22
DX: R44.0 Auditory hallucinations (principal); R45.851 Suicidal ideations; I10 Essential (primary) hypertension; E11.9 Type 2 diabetes mellitus without complications; F31.9 Bipolar disorder, unspecified; F20.0 Paranoid schizophrenia; Z88.8 Allergy status to other drugs, medicaments and biological substances
CPT/HCPCS: 36415; 80048; 80307; 81001; 85007; 85025; 99285; G0480; 80320